=== PATIENT | male | born 1965 | race Caucasian/White ===

== ENCOUNTER → 2020-04-28 11:15 | Outpatient (BNVA) | payer BC, SELFPAY | PROVIDERS: Family Provider Nurse Practitioner Family; PCP Nurse Practitioner Family; Visit Provider Nurse Practitioner Family | DX: M25.9 Joint disorder, unspecified (principal); E34.9 Endocrine disorder, unspecified; M25.50 Pain in unspecified joint | CPT/HCPCS: 84403; 85651; 86038; 86140; 86431 ==

== ENCOUNTER → 2020-12-05 10:26 | Outpatient (BNVA) | payer BC, SELFPAY | PROVIDERS: Family Provider Nurse Practitioner Family; PCP Nurse Practitioner Family; Visit Provider Registered Nurse | DX: G60.9 Hereditary and idiopathic neuropathy, unspecified (principal); R61 Generalized hyperhidrosis; I10 Essential (primary) hypertension; E03.9 Hypothyroidism, unspecified; F41.9 Anxiety disorder, unspecified | CPT/HCPCS: 80053; 84402; 84403; 84443; 85025 ==

== ENCOUNTER → 2021-05-01 08:04 | Outpatient (BNVA) | payer BC, SELFPAY | PROVIDERS: Family Provider Nurse Practitioner Family; PCP Registered Nurse; Visit Provider Registered Nurse | DX: N39.0 Urinary tract infection, site not specified (principal); N41.0 Acute prostatitis | CPT/HCPCS: 81000 ==

== ENCOUNTER → 2021-12-17 08:53 | Outpatient (BNVA) | payer BC, SELFPAY | PROVIDERS: Family Provider Nurse Practitioner Family; PCP Registered Nurse; Visit Provider Registered Nurse | DX: G60.9 Hereditary and idiopathic neuropathy, unspecified (principal); Z12.5 Encounter for screening for malignant neoplasm of prostate; I10 Essential (primary) hypertension; E55.9 Vitamin D deficiency, unspecified; E29.1 Testicular hypofunction; Z12.11 Encounter for screening for malignant neoplasm of colon; Z00.00 Encounter for general adult medical examination without abnormal findings | CPT/HCPCS: 80053; 80061; 82306; 84402; 84403; 85025; G0103 ==

== ENCOUNTER 2022-02-06 06:14 | Day surgery (SDC) | payer BC, SELFPAY ==
[2022-02-01 11:48] VITALS: BMI 27.2
[2022-02-06 06:30] VITALS: BP 150/89; PULSE 72; RESP 20; TEMP 36.1; O2SAT 98
[2022-02-06] MEDS: sodium chloride 0.9% 1,000 ML 30 ML IV (06:37)
--- NOTE | 2022-02-06 07:47 | W.PM.OPSFHP ---
Same Day Surgery H&P Indication for Procedure/HPI DATE OF PROCEDURE: February 06, 2022 CHIEF COMPLAINT/INDICATIONFOR SURGICAL PROCEDURE: colonoscopy PREOP DIAGNOSIS: diagnostic PLANNED PROCEDURE: Operation Date: 02/06/22 08:00 Proposed Procedures p Colonoscopy 97023/z12.11(Not Applicable) - Juan Francisco Brown MD Medications/Allergies* Home Medications Medication Instructions Recorded Confirmed Type Vitamin D3 1 cap PO DAILY 02/06/22 02/06/22 History Allergies/Adverse Reactions Allergy/AdvReac Type Severity Reaction Status Date / Time Penicillins Allergy swelling Verified 12/17/21 08:17 tetanus toxoid, adsorbed Allergy Unknown Verified 12/17/21 08:17 Current Medications: Generic Name Dose Route Start Last Admin Trade Name Freq PRN Reason Stop Dose Admin Sodium Chloride 1,000 mls @ 30 mls/hr 02/06/22 06:30 02/06/22 06:37 Sodium Chloride 0.9% IV 02/07/22 06:29 30 mls/hr .Q24H ANDREI Administration Pertinent History/Comorbid Conditions* Medical History (Updated 12/17/21 @ 11:42 by CLARITZA oRbert) Diverticulitis Hypogonadism in male Social History Smoking and tobacco status: never smoked Alcohol intake: never Adopted: No Caregiver/support person: No Lives independently: No Household members: spouse Current occupational status: employed Sexually active: Yes Current gender identity: Male Pertinent Exam Findings alert, oriented x 3 and regular rate & rhythm Recommendations Surgery/Procedure today Coding Level of Care Code 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
--- NOTE | 2022-02-06 07:58 | ANES.PREANE2 ---
Pre-Anesthetic Assessment Height/Weight: Height 1.83 m Weight 91.172 kg Temp Pulse Resp BP Pulse Ox 97 F L 72 20 H 150/89 98 02/06/22 06:30 02/06/22 06:30 02/06/22 06:30 02/06/22 06:30 02/06/22 06:30 Preop Diagnosis: diagnostic Operation Date: 02/06/22 08:00 Proposed Procedures p Colonoscopy 11219/z12.11(Not Applicable) - Juan Francisco Brown MD Was Beta Zac taken within 24 hours: N/A Was Clonidine taken within 24 hours: N/A Last intake: Intake Last Liquid Date 02/05/22 Last Liquid Time 20:00 Last Solid Date 02/04/22 Last Solid Time 18:00 Social No alcohol and No tobacco Exam alert, oriented x 3, clear to auscultation bilaterally and regular rate & rhythm Airway Submandibular: within normal limits Cervical ROM: within normal limits Mallampati: Class II Dentition: full History/ROS No significant history except as noted and No significant complaints Pulmonary None reported CV/HEM None reported None reported Hepatic None reported GI None reported Metabolic None reported Musc/skel None reported Neuropsych None reported Anesthetic Plan ASA status: 2 Anesthesia: MAC Risk of > 500 ml blood loss (7ml/kg in children): No Medications/Allergies Home Medications Medication Instructions Recorded Confirmed Last Taken Type celecoxib 100 mg capsule See Rx Instructions .ROUTE 12/17/21 02/01/22 02/05/22 Rx .COMPLEX #180 cap pregabalin 75 mg capsule (Lyrica) 75 mg PO BID 30 Days #60 cap 12/17/21 02/01/22 02/05/22 Rx fluoxetine 20 mg capsule See Rx Instructions .ROUTE 01/29/22 02/01/22 02/05/22 Rx .COMPLEX #90 cap Vitamin D3 1 cap PO DAILY 02/06/22 02/06/22 02/05/22 History Allergies Allergy/AdvReac Type Severity Reaction Status Date / Time Penicillins Allergy swelling Verified 12/17/21 08:17 tetanus toxoid, adsorbed Allergy Unknown Verified 12/17/21 08:17 Current Medications Generic Name Dose Route Start Last Admin Trade Name Freq PRN Reason Stop Dose Admin Sodium Chloride 1,000 mls @ 30 mls/hr 02/06/22 06:30 02/06/22 06:37 Sodium Chloride 0.9% IV 02/07/22 06:29 30 mls/hr .Q24H ANDREI Administration PFSH Anesthesia Medical History Diverticulitis Hypogonadism in male Social History Smoking and tobacco status: never smoked Alcohol intake: never Adopted: No Caregiver/support person: No Lives independently: No Household members: spouse Current occupational status: employed Sexually active: Yes Current gender identity: Male Data Anesthesia Cardiac Studies: No Data to Display
[2022-02-06 08:32] VITALS: BP 113/84; PULSE 71; RESP 18; TEMP 36.2; O2SAT 96
[2022-02-06 08:47] VITALS: BP 120/95; PULSE 63; RESP 18; O2SAT 98
--- NOTE | 2022-02-06 17:14 | ANE.PACU2 ---
Inpatient post-anesthesia follow up: Airway intact: Yes Vital signs: Temperature 97.1 F Pulse Rate 63 Respiratory Rate 18 Blood Pressure 120/95 Pulse Oximetry 98 Oxygen Delivery Me thod Room Air Oxygen Flow Rate Fraction of Inspir ed Oxygen Hydration adequate: Yes Nausea and vomiting: No Pain level: 1 Mental status: Baseline
== END 2022-02-06 09:00 | disposition home or self-care (01) ==
PROVIDERS: Family Provider Nurse Practitioner Family; PCP Registered Nurse; Visit Provider Surgery
PROC: 0DJD8ZZ Inspection of Lower Intestinal Tract, Via Natural or Artificial Opening Endoscopic (ICD-10-PCS; CPT 45378; principal; 2022-02-06 08:00)
DX: Z12.11 Encounter for screening for malignant neoplasm of colon (principal); K57.30 Diverticulosis of large intestine without perforation or abscess without bleeding; K64.8 Other hemorrhoids
CPT/HCPCS: 45378; J2704; J7030

== ENCOUNTER → 2022-09-09 08:55 | Outpatient (BNVA) | payer OTHER, SELFPAY | PROVIDERS: Family Provider Nurse Practitioner Family; PCP Registered Nurse; Visit Provider Registered Nurse | DX: I10 Essential (primary) hypertension (principal); G60.9 Hereditary and idiopathic neuropathy, unspecified; K57.92 Diverticulitis of intestine, part unspecified, without perforation or abscess without bleeding; F41.9 Anxiety disorder, unspecified; R03.0 Elevated blood-pressure reading, without diagnosis of hypertension; E55.9 Vitamin D deficiency, unspecified | CPT/HCPCS: 80053; 80061; 82306; 85025 ==

== ENCOUNTER → 2023-01-13 09:33 | Outpatient (BNVA) | payer OTHER, SELFPAY | PROVIDERS: Family Provider Nurse Practitioner Family; PCP Registered Nurse; Visit Provider Registered Nurse | DX: I10 Essential (primary) hypertension (principal); E29.1 Testicular hypofunction; E55.9 Vitamin D deficiency, unspecified; E78.5 Hyperlipidemia, unspecified; R53.83 Other fatigue | CPT/HCPCS: 80053; 80061; 82306; 84402; 84403; 85025 ==

== ENCOUNTER → 2023-10-30 11:51 | Outpatient (BNVA) | payer OTHER, SELFPAY | PROVIDERS: Family Provider Nurse Practitioner Family; PCP Registered Nurse; Visit Provider Registered Nurse | DX: R61 Generalized hyperhidrosis (principal); Z79.899 Other long term (current) drug therapy; I10 Essential (primary) hypertension | CPT/HCPCS: 80053; 83880; 84443; 85025; 86140 ==

== ENCOUNTER → 2024-03-03 09:12 | Outpatient (BNVA) | payer OTHER, SELFPAY | PROVIDERS: Family Provider Nurse Practitioner Family; PCP Registered Nurse; Visit Provider Registered Nurse | DX: M77.8 Other enthesopathies, not elsewhere classified (principal); M25.50 Pain in unspecified joint | CPT/HCPCS: 85025; 86140; 86431 ==

== ENCOUNTER 2024-10-26 12:23 | Outpatient (CLI) | payer OTHER, SELFPAY ==
--- NOTE | 2024-10-26 12:28 | XR_ITS ---
WS: [id number] Exam: XR lumbar spine 2-3V* [id number] Date/Time of Exam: 10/26/2024 12:30 PM Reason For Exam: M54.50 - Low back pain, unspecified No acute fracture. Mild spondylosis. Disc spaces are preserved. Posterior elements are intact. Slight levoscoliosis that may be positional. XR/XR lumbar spine 2-3V* [id number] IMPRESSION: 1. Mild spondylosis otherwise negative lumbar spine.
== END 2024-10-26 12:24 | disposition home or self-care (01) ==
LOC: RAD 12:26
PROVIDERS: Family Provider Nurse Practitioner Family; PCP Registered Nurse; Visit Provider Registered Nurse
DX: M47.896 Other spondylosis, lumbar region (principal); M79.604 Pain in right leg; M79.605 Pain in left leg
CPT/HCPCS: 72100

== ENCOUNTER 2024-12-02 06:00 | Outpatient (RCR) | payer OTHER, SELFPAY | END 2024-12-27 23:59 | disposition home or self-care (01) | LOC: WPT 06:00 | PROVIDERS: Visit Provider Registered Nurse | DX: M54.42 Lumbago with sciatica, left side (principal) | CPT/HCPCS: 97110; 97112; 97161; 97530 ==

== ENCOUNTER 2024-12-29 07:29 | Outpatient (CLI) | payer OTHER, SELFPAY ==
--- NOTE | 2024-12-29 08:15 | MR_ITS ---
WS: [id number] MRI LUMBAR SPINE NONCONTRAST TECHNIQUE: Sagittal T1, T2 and STIR imaging. Axial T1 and T2 imaging. CLINICAL INFORMATION: M54.10 - Radiculopathy, site unspecified COMPARISON: MRI 2012 FINDINGS: Mild lumbar curve. No acute compression. No high-grade central canal stenosis. L1-L2: Mild annular bulging. Mild facet arthropathy. Spinal canal and foramina are patent. L2-L3: Mild facet arthropathy. Spinal canal and foramen are patent. L3-L4: Mild annular bulging. LEFT eccentric disc bulging with mild to moderate foraminal narrowing. Impingement on the exiting LEFT L3 nerve root. Mild facet arthropathy. L4-L5: Mild annular bulging. Mild facet arthropathy. Bilateral foraminal protrusions with mild LEFT greater than RIGHT foraminal narrowing. Moderate facet arthropathy. L5-S1: Mild facet arthropathy. Spinal canal and foramen are patent. Visualized pelvic bony structures: Normal. Paravertebral soft tissues: Normal. Partially visualized small LEFT renal cyst. MR/MR lumbar spine wo con* [id number] IMPRESSION: 1. LEFT eccentric disc bulging L3-4 with slight impingement on the exiting LEF T L3 nerve root. 2. Small bilateral foraminal protrusions L4-5 with mild bilateral foraminal na rrowing and contact of the exiting L4 nerve roots. 3. Mild to moderate facet arthropathy L3-L5. 4. No other acute findings.
== END 2024-12-29 07:30 | disposition home or self-care (01) ==
PROVIDERS: Visit Provider Nurse Practitioner Family
DX: M54.10 Radiculopathy, site unspecified (principal); M51.369 Other intervertebral disc degeneration, lumbar region without mention of lumbar back pain or lower extremity pain; M51.26 Other intervertebral disc displacement, lumbar region; M47.896 Other spondylosis, lumbar region; M43.8X6 Other specified deforming dorsopathies, lumbar region; M47.897 Other spondylosis, lumbosacral region; N28.1 Cyst of kidney, acquired
CPT/HCPCS: 72148

== ENCOUNTER → 2025-01-06 14:31 | Outpatient (BNVA) | payer OTHER, SELFPAY | PROVIDERS: Visit Provider Orthopaedic Surgery | DX: M48.061 Spinal stenosis, lumbar region without neurogenic claudication (principal) | CPT/HCPCS: 72110 ==

== ENCOUNTER → 2025-03-03 11:32 | Outpatient (BNVA) | payer OTHER, SELFPAY | PROVIDERS: PCP Registered Nurse; Visit Provider Orthopaedic Surgery | DX: Z01.818 Encounter for other preprocedural examination (principal); M48.061 Spinal stenosis, lumbar region without neurogenic claudication | CPT/HCPCS: 36415; 80053; 81001; 85025 ==

== ENCOUNTER 2025-03-16 09:44 | Day surgery (SDC) | payer OTHER, SELFPAY ==
[2025-03-16] VITALS (11 sets, daily range): BP systolic 106–121; BP diastolic 72–78; PULSE 62–98; RESP 16–21; TEMP 36.2–36.7; O2SAT 94–100; BMI 27.3
[2025-03-16] MEDS: sodium chloride 0.9% 1,000 ML 30 ML IV (10:30)
--- NOTE | 2025-03-16 10:32 | ANES.PREANE2 ---
Pre-Anesthetic Assessment Height/Weight: Height 6 ft Weight 202 lb Temp Pulse Resp BP Pulse Ox O2 Del Method 97.9 F 62 17 116/76 98 Room Air 03/16/25 10:10 03/16/25 10:10 03/16/25 10:10 03/16/25 10:10 03/16/25 10:10 03/16/25 10:10 Preop Diagnosis: Lumbar stenosis neurogenic claudication Operation Date: 03/16/25 11:40 Proposed Procedures p Lumbar Spine Decompression(Not Applicable) - Fernando Ferreira, DO Was Beta Azc taken within 24 hours: N/A Was Clonidine taken within 24 hours: N/A Last intake: Intake Last Liquid Date 03/15/25 Last Liquid Time 21:00 Last Solid Date 03/15/25 Last Solid Time 20:30 Social No alcohol and No tobacco Exam alert, oriented x 3, clear to auscultation bilaterally and regular rate & rhythm Airway Submandibular: within normal limits Cervical ROM: within normal limits Mallampati: Class III Dentition: full Anesthetic Plan ASA status: 2 Anesthesia: General Other: No prior issues with anesthesia NPO since yesterday evening History of hypertension on lisinopril Labs reviewed and acceptable for procedure 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 stable 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, 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 Plan for GETA Medications/Allergies Home Medications ?Medication ?Instructions ?Recorded ?Confirmed ?Last Taken ?Type psyllium husk 0.4 gram capsule 0.4 g PO QPM 10/26/24 03/16/25 03/15/25 History (Daily Fiber) tizanidine 4 mg tablet 4 mg PO BID PRN muscle spasticity 02/09/25 03/16/25 03/08/25 Rx #60 tabs celecoxib 100 mg capsule 100 mg PO BID 03/15/25 03/15/25 03/09/25 History cholecalciferol (vitamin D3) 1,250 1,250 mcg PO .WEEKLY 03/15/25 03/15/25 03/11/25 History mcg (50,000 unit) capsule fluoxetine 20 mg capsule 20 mg PO QPM 03/15/25 03/16/25 03/15/25 History lisinopril 10 mg tablet (Zestril) 10 mg PO QPM 03/15/25 03/15/25 03/14/25 History pregabalin 75 mg capsule (Lyrica) 75 mg PO QPM 03/15/25 03/16/25 03/15/25 History rosuvastatin 10 mg tablet 10 mg PO QPM 03/15/25 03/16/25 03/15/25 History Allergies Allergy/AdvReac Type Severity Reaction Status Date / Time Penicillins Allergy swelling Verified 03/15/25 15:45 tetanus toxoid, adsorbed Allergy Unknown Verified 03/15/25 15:45 Current Medications Generic Name Dose Route Start Last Admin Trade Name Freq PRN Reason Stop Dose Admin Sodium Chloride 1,000 mls @ 30 mls/hr 03/16/25 10:00 03/16/25 10:30 Sodium Chloride 0.9% IV 03/17/25 09:59 30 mls/hr .Q24H ANDREI Administration PFSH Anesthesia Medical History Hypogonadism in male Diverticulitis Surgical History Status post colonoscopy (02/06/22) History of shoulder surgery History of appendectomy Social History Smoking and tobacco/nicotine status: never used tobacco/nicotine Alcohol intake: never Substance/Drug Use: never Adopted: No Caregiver/support person: No Lives independently: No Household members: spouse Current occupational status: employed Sexually active: Yes Do you think of yourself as: Straight/Heterosexual Current gender identity: Male
--- NOTE | 2025-03-16 10:46 | W.PM.OPSUD ---
Surgery/Procedure H&P Update DATE OF PROCEDURE: March 16, 2025 DATE H&P PERFORMED: 03/03/25 H&P UPDATE INFORMATION: I have reviewed H&P completed within last 30 days, I have examined patient prior to procedure and No changes to prior documentation PREOP DIAGNOSIS: Lumbar stenosis neurogenic claudication PLANNED PROCEDURE: Operation Date: 03/16/25 11:40 Proposed Procedures p Lumbar Spine Decompression(Not Applicable) - Fernando Ferreira DO
[2025-03-16] MEDS: clindamycin 600 MG/50 ML PREMIX IV (11:14)
[2025-03-16] MEDS: lidocaine-epi 1% 20 mL INJ INJECTION (11:42)
--- NOTE | 2025-03-16 12:34 | PM.OP ---
Operative Report Date of procedure: March 16, 2025 Pre-op diagnosis: Lumbar stenosis neurogenic claudication Post-op diagnosis: same Procedure done: L4/5 laminectomy with partial facetectomy Surgeon: Fernando Ferreira DO Estimated blood loss (mL): 5 Procedure: Right L4-5 laminectomy with partial facetectomy Patient is brought to the operative suite. After undergoing anesthesia they are placed in the prone position. All areas of impingement are well padded. Patient is then prepped and draped in the normal sterile fashion. A skin incision is made over the L4/5 level. This is confirmed under c-arm guidance. A series of dilators are passed and the tubular retractor is docked on the L4 lamina. A bovie is used to clear the soft tissue off the lamina and the L 4/5 facet joint. A high speed alejandro is then used to perform the laminectomy and take down the medial aspect of the L 4/5 facet joint. A kerrison rongeure was then used to take down the remaining lamina and smooth the edge of the laminectomy up to the point where the ligamentum flavum attaches. Attention was then brought to the medial aspect of the facet joint. The remaining medial aspect of the superior and inferior aspect of the facet joint were taken down with the kerrison from the pedicle of L4 to L 5. The facet joint had significant hypertrophy. Attention was then brought to the Ligamentum Flavum. The ligament was taken down from the lamina of L4 to L5 and out medially to the remaining facet joint. The ligament was thick. The dura was then exposed. The dura was in good repair. The L4 nerve was then traced with a curette out the L4/5 foramen and found to be adequately decompressed. The L5 nerve was traced with a curette around the L5 pedicle. The lateral recess was opened with a kerrison helping to further decompress the L5 nerve. Wound is then irrigated copiously with saline and surgiflo is used to stop any bleeding. The tubular retractor is removed and the wound is closed with vicryl and monocryl suture. Glue is then used to protect the wound. A sterile dressing is then placed. Patient was then placed in the supine position and transferred to the PACU in stable condition.
[2025-03-16] MEDS: albuterol 2.5 MG/0.5 ML NEB (12:49)
--- NOTE | 2025-03-16 13:38 | ANE.PACU2 ---
Inpatient post-anesthesia follow up: Airway intact: Yes Vital signs: Temperature 98.1 F Pulse Rate 95 Respiratory Rate 18 Blood Pressure 116/72 Pulse Oximetry 95 Oxygen Delivery Me thod Room Air Oxygen Flow Rate 10 Fraction of Inspir ed Oxygen Hydration adequate: Yes Nausea and vomiting: No Pain level: 2 Mental status: Baseline
--- NOTE | 2025-03-16 14:51 | XR_ITS ---
WS: [id number] Lumbar spine, C-arm fluoroscopy views, 03/16/2025 Clinical Data: or pic, decompression Comparison: Lumbar spine, 01/06/2025 Findings: Dr. Ferreira performed a lumbar decompression. XR/XR lumbar spine 1V [id number] Impression: Lumbar decompression.
== END 2025-03-16 13:38 | disposition home or self-care (01) ==
PROVIDERS: PCP Registered Nurse; Visit Provider Orthopaedic Surgery
PROC: (CPT 63005; principal; 2025-03-16 11:20)
DX: M48.062 Spinal stenosis, lumbar region with neurogenic claudication (principal); I10 Essential (primary) hypertension
CPT/HCPCS: 63047; 72020; 76000; A7003; J1100; J1171; J1885; J2250; J2405; J2704; J3010; J3490; J3535; J7030; J7611; J9999

== ENCOUNTER 2025-03-21 10:41 | Emergency (ER) | payer OTHER, SELFPAY ==
[2025-03-21 10:47] VITALS: BP 117/70; PULSE 87; RESP 18; TEMP 37.6; O2SAT 98; BMI 28.1
[2025-03-21 11:45] LABS: Basophils # 0.1 10^3/uL (0.0-0.1); Basophils % 0.7 %; Eosinophils # 0.1 10^3/uL (0.0-0.8); Eosinophils % 1.5 %; Hematocrit 39.4 % (37-53); Lymphocytes # 1.2 10^3/uL (0.8-4.8); Lymphocytes % 14.8 %; Mean Corpuscular Hemoglobin 31.6 pg (27-33); Mean Corpuscular Volume 92.9 fl (82-101); Mean Platelet Volume 10.2 fL (7.4-10.4); Monocytes # 0.9 10^3/uL (0.2-0.9); Neutrophils # 5.81 10^3/uL (1.8-7.7); Nucleated Red Blood Cells % 0 %; Platelet Count 366 10^3/cmm (157-399); Red Blood Count 4.24 10^6/uL (3.85-5.65); Red Cell Distribution Width 11.4 % (12.1-15.1); White Blood Count 8.18 10^3/uL (3.29-11.43)
[2025-03-21 11:47] LABS: Erythrocyte Sedimentation Rate 13 mm/hr (0-10)
[2025-03-21 11:56] VITALS: BP 123/70; PULSE 87; RESP 16; O2SAT 93
[2025-03-21 11:59] VITALS: TEMP 37.3
--- NOTE | 2025-03-21 11:59 | XR_ITS ---
WS: [id number] Exam: XR chest 1V portable [id number] Date/Time of Exam: 03/21/2025 12:05 PM Reason For Exam: fever No priors. The lungs are fully inflated and clear. Normal cardiomediastinal silhouette for technique. No pleural effusion. Normal bony structures. XR/XR chest 1V portable [id number] IMPRESSION: 1. No acute cardiopulmonary finding.
--- NOTE | 2025-03-21 11:59 | CT_ITS ---
WS: [id number] CT lumbar myelogram with contrast HISTORY: back pain TECHNIQUE: Contiguous 2.5 mm axial imaging performed from T12 through the mid sacral level. Bone and soft tissue windows reviewed. Sagittal and coronal reformats are submitted and reviewed. DLP: 1416.[address] scans at [facility] use at least one of these dose optimization techniques: automated exposure control; mA and/or kV adjustment per patient size (includes targeted exams where dose is matched to clinical indication); or iterative reconstruction. COMPARISON: None available. Contrast: Omnipaque 350, 100 cc. Normal lumbar alignment. No fractures. No bone destruction. L4-5: Large LEFT laminectomy defect. At the laminectomy defect site there is a fluid collection measuring 2.9 x 3.0 cm. Fluid fluid collection contains a small amount of air. The collection extends into the LEFT epidural space with mild contact on the posterior thecal sac. Mild compression of the thecal sac. RIGHT broad-based foraminal disc protrusion and osteophytosis. Mild bilateral foraminal stenosis. Additional subcutaneous fluid measures 13.8 cm in length centered over the lumbar spine with a few foci of air. No wall enhancement. Sigmoid diverticulosis. No evidence for acute diverticulitis. Mild perinephric stranding. Partially visualized cyst lower pole LEFT kidney. No renal obstruction. Mild atherosclerosis aorta. CT/CT lumbar spine w con [id number] IMPRESSION: 1. Status post recent LEFT hemilaminectomy defect at L4-5. 2. In the hemilaminectomy defect is a fluid collection with a few foci of air measuring 2.9 x 3.0 cm. Fluid extends into the LEFT epidural space with mild en croachment and narrowing of the thecal sac. Due to the recent surgery this may be appropriate for postoperative seroma. No wall enhancement. 3. Development of mild central stenosis at the L4-5 level due to adjacent post operative fluid and postsurgical changes. Consider follow-up with orthopedic flores rgeon. MRI lumbar spine with and without contrast may be of benefit.
--- NOTE | 2025-03-21 11:59 | CT_ITS ---
WS: [id number] CT THORACIC spine with contrast. HISTORY: back pain TECHNIQUE: Contiguous 2.0 mm axial images are reviewed to thoracic spine. Images are reformatted in sagittal and coronal planes. All CT scans at [facility] use at least one of these dose optimization techniques: automated exposure control; mA and/or kV adjustment per patient size (includes targeted exams where dose is matched to clinical indication); or iterative reconstruction. DLP: 1416.85 mGy.cm COMPARISON: None available. Normal posterior thoracic alignment. No fractures are identified. Small vertebral body osteophytes. Largest osteophyte RIGHT lateral at T9-10. Unfused ossification center spinous process of T1. No acute fractures. No enhancing masses are identified. No cord compression identified. Biapical pleural thickening and scarring. Dependent atelectasis at the lung bases. Very small LEFT pleural effusion. Small mediastinal and hilar lymph nodes. These may be reactive as the number is increased. Small hiatal hernia. No adrenal mass. CT/CT thoracic spine w con [id number] IMPRESSION: 1. No acute thoracic spine fracture. 2. No enhancing mass or bone destruction.
[2025-03-21 12:04] LABS: Alanine Aminotransferase 43 U/L (0-41); Albumin Level 3.9 g/dL (3.5-5.2); Alkaline Phosphatase 97 U/L (40-130); Anion Gap 19.5 (5-19); Aspartate Amino Transferase 33 U/L (0-40); Blood Urea Nitrogen 12 mg/dL (6-20); C Reactive Protein 75.5 mg/L (0.0-4.9); Calcium 9.3 mg/dL (8.5-10.5); Carbon Dioxide 22 mmol/L (22-29); Chloride 101 mmol/L (98-107); Creatinine Clr Calc Pharmacy 103.5508; Globulin 3.7 g/dL (1.3-4.6); Glomerular Filtration Rate 86.7 mL/min (90-130); Glucose 97 mg/dL (65-115); Osmolality Calculated 286 mOsm/kg (285-295); Potassium 4.5 mmol/L (3.5-5.1); Sodium 138 mmol/L (136-145); Total Bilirubin 0.7 mg/dL (0.15-1.2); Total Protein 7.6 g/dL (6.6-8.7)
--- NOTE | 2025-03-21 12:05 | W.ED.FEVER ---
HPI - Fever General: Chief Complaint: Fever Stated Complaint: post op back surgery problems Time Seen by Provider: 03/21/25 11:58 Source: patient Mode of arrival: ambulatory Limitations: no limitations History of Present Illness: 60-year-old male states he had lumbar surgery last Friday states that since then he has been having severe back pain states pain is in his lower back goes down his hips. States he is also been having fevers as well. States had fever up to 102. He states he has had a hard time walking due to the pain denies any abdominal pain denies any chest pain. Associated symptoms: Deny abdominal pain, chills, chest pain, diarrhea, dysuria, headache(s), nausea or vomiting Related Data Home Medications ?Medication ?Instructions ?Recorded ?Confirmed psyllium husk 0.4 gram capsule 0.4 g PO QPM 10/26/24 03/16/25 (Daily Fiber) celecoxib 100 mg capsule 100 mg PO BID 03/15/25 03/15/25 cholecalciferol (vitamin D3) 1,250 1,250 mcg PO .WEEKLY 03/15/25 03/15/25 mcg (50,000 unit) capsule fluoxetine 20 mg capsule 20 mg PO QPM 03/15/25 03/16/25 pregabalin 75 mg capsule (Lyrica) 75 mg PO QPM 03/15/25 03/16/25 rosuvastatin 10 mg tablet 10 mg PO QPM 03/15/25 03/16/25 Previous Rx's ?Medication ?Instructions ?Recorded tizanidine 4 mg tablet 4 mg PO BID PRN muscle spasticity 02/09/25 #60 tabs hydrocodone 5 mg-acetaminophen 325 1 - 2 tab PO .Q4-6H #40 tabs 03/16/25 mg tablet hydrocodone 5 mg-acetaminophen 325 1 - 2 tab PO .Q4-6H #40 tabs 03/16/25 mg tablet hydrocodone 5 mg-acetaminophen 325 1 - 2 tab PO .Q4-6H #40 tabs 03/16/25 mg tablet hydrocodone 5 mg-acetaminophen 325 1 - 2 tab PO .Q4-6H #40 tabs 03/16/25 mg tablet lisinopril 10 mg tablet (Zestril) 10 mg PO QPM #90 tabs 03/18/25 oxycodone-acetaminophen 7.5 mg-325 1 tab PO Q8H PRN pain #14 tabs 03/21/25 mg tablet (Percocet) sulfamethoxazole 800 1 tab PO BID 10 days #20 tabs 03/21/25 mg-trimethoprim 160 mg tablet (Bactrim DS) Allergies Allergy/AdvReac Type Severity Reaction Status Date / Time Penicillins Allergy swelling Verified 03/21/25 10:51 tetanus toxoid, adsorbed Allergy Unknown Verified 03/21/25 10:51 Review of Systems Const: Reports: fever(s); Denies: chills, body aches or change in appetite ENMT: Denies: throat pain or dental pain Card: Denies: chest pain Resp: Denies: dyspnea GI: Denies: abdominal pain, nausea, vomiting or diarrhea : Denies: dysuria Musc: Reports: back pain; Denies: neck pain Skin/Breast: Denies: rash Neuro: Denies: headache(s) PFSH ED PFSH: Medical History Hypogonadism in male Diverticulitis Surgical History Status post colonoscopy (02/06/22) History of shoulder surgery History of appendectomy Social History Smoking and tobacco/nicotine status: never used tobacco/nicotine Alcohol intake: never Substance/Drug Use: never Adopted: No Caregiver/support person: No Lives independently: No Household members: spouse Current occupational status: employed Sexually active: Yes Do you think of yourself as: Straight/Heterosexual Current gender identity: Male Physical Exam Const: COMMON NORMALS: no acute distress, patient oriented x3 and healthy appearing HENMT: COMMON NORMALS: normocephalic and atraumatic HEAD & SCALP: normocephalic and atraumatic Eye: COMMON NORMALS: conjunctivae normal CONJUNCTIVA: Yes conjunctivae normal Neck/C-Spine: COMMON NORMALS: full ROM and supple Chest: COMMONS NORMALS: normal inspection of the chest Resp: COMMON NORMALS: normal respiratory effort, No retractions, No use of accessory muscles and clear to auscultation bilaterally AUSCULTATION: clear to auscultation bilaterally Cardio: COMMON NORMALS: regular rate, regular rhythm and No murmurs present (Cardio) RATE: regular rate RHYTHM: regular rhythm GI: COMMON NORMALS: Normal to inspection, nondistended, normoactive bowel sounds present, Soft to palpation, non-tender and no masses PALPATION: Yes Soft to palpation Back/Pelvis: OTHER: Incisions clean dry and intact Extremity: COMMON NORMALS: normal to inspection and full ROM Neuro: COMMON NORMALS: patient oriented x3, moves all extremities and no focal motor deficits Psych: COMMON NORMALS: mental status grossly normal, Normal thought process present and cooperative THOUGHT PROCESS: Normal thought process present Skin: COMMON NORMALS: no rashes or lesions noted and no wounds GENERAL SKIN EXAM: no rashes or lesions noted Course Vital Signs: Vital signs: Vital Signs Temperature 99.2 F 03/21/25 11:59 Pulse Rate 87 03/21/25 11:56 Respiratory Rate 16 03/21/25 11:56 Blood Pressure 123/70 03/21/25 12:42 Pulse Oximetry 94 03/21/25 12:42 Oxygen Delivery Me thod Room Air 03/21/25 10:47 MDM - Fever Medical Decision Making Patient presents with back pains likely postop pain he is feels much improved here after pain meds he is able to ambulate without difficulty he is afebrile here incisions clean and dry and intact I did speak to his surgeon Dr[facility] on . Return if worsening Medical Records I reviewed the patient's medical records. Lab Data I reviewed the patient's lab results. 03/21/25 11:37 03/21/25 11:37 Radiology Impressions Chest X-Ray 03/21/25 11:59 IMPRESSION: 1. No acute cardiopulmonary finding. Lumbar Spine CT 03/21/25 11:59 IMPRESSION: 1. Status post recent LEFT hemilaminectomy defect at L4-5. 2. In the hemilaminectomy defect is a fluid collection with a few foci of air measuring 2.9 x 3.0 cm. Fluid extends into the LEFT epidural space with mild encroachment and narrowing of the thecal sac. Due to the recent surgery this may be appropriate for postoperative seroma. No wall enhancement. 3. Development of mild central stenosis at the L4-5 level due to adjacent postoperative fluid and postsurgical changes. Consider follow-up with orthopedic surgeon. MRI lumbar spine with and without contrast may be of benefit. Thoracic Spine CT 03/21/25 11:59 IMPRESSION: 1. No acute thoracic spine fracture. 2. No enhancing mass or bone destruction. Laboratory Results WBC 8.18 10^3/uL (3.29-11.43) 03/21/25 11:37 RBC 4.24 10^6/uL (3.85-5.65) 03/21/25 11:37 Hgb 13.40 g/dL (11.27-16.99) 03/21/25 11:37 Hct 39.4 % (37-53) 03/21/25 11:37 MCV 92.9 fl (82-101) 03/21/25 11:37 MCH 31.6 pg (27-33) 03/21/25 11:37 MCHC 34.0 g/dL (30-55) 03/21/25 11:37 RDW 11.4 % (12.1-15.1) L 03/21/25 11:37 Plt Count 366 10^3/cmm (157-399) 03/21/25 11:37 MPV 10.2 fL (7.4-10.4) 03/21/25 11:37 Neut % (Auto) 71.0 % 03/21/25 11:37 Lymph % (Auto) 14.8 % 03/21/25 11:37 [place] % (Auto) 11.0 % 03/21/25 11:37 Eos % (Auto) 1.5 % 03/21/25 11:37 Baso % (Auto) 0.7 % 03/21/25 11:37 Neut # (Auto) 5.81 10^3/uL (1.8-7.7) 03/21/25 11:37 Lymph # (Auto) 1.2 10^3/uL (0.8-4.8) 03/21/25 11:37 [place] # (Auto) 0.9 10^3/uL (0.2-0.9) 03/21/25 11:37 Eos # (Auto) 0.1 10^3/uL (0.0-0.8) 03/21/25 11:37 Baso # (Auto) 0.1 10^3/uL (0.0-0.1) 03/21/25 11:37 Nucleated RBC % (auto) 0 % 03/21/25 11:37 Nucleated RBCs # 0.0 /100WBC 03/21/25 11:37 ESR 13 mm/hr (0-10) H 03/21/25 11:37 Sodium 138 mmol/L (136-145) 03/21/25 11:37 Potassium 4.5 mmol/L (3.5-5.1) 03/21/25 11:37 Chloride 101 mmol/L (98-107) 03/21/25 11:37 Carbon Dioxide 22 mmol/L (22-29) 03/21/25 11:37 Anion Gap 19.5 (5-19) H 03/21/25 11:37 BUN 12 mg/dL (6-20) 03/21/25 11:37 Creatinine 0.9 mg/dL (0.7-1.2) 03/21/25 11:37 GFR Calculation 86.7 mL/min (90-130) L 03/21/25 11:37 Glucose 97 mg/dL (65-115) 03/21/25 11:37 Calculated Osmolality 286 mOsm/kg (285-295) 03/21/25 11:37 Calcium 9.3 mg/dL (8.5-10.5) 03/21/25 11:37 Total Bilirubin 0.7 mg/dL (0.15-1.2) 03/21/25 11:37 AST 33 U/L (0-40) 03/21/25 11:37 ALT 43 U/L (0-41) H 03/21/25 11:37 Alkaline Phosphatase 97 U/L (40-130) 03/21/25 11:37 C-Reactive Protein 75.5 mg/L (0.0-4.9) H 03/21/25 11:37 Total Protein 7.6 g/dL (6.6-8.7) 03/21/25 11:37 Albumin 3.9 g/dL (3.5-5.2) 03/21/25 11:37 Globulin 3.7 g/dL (1.3-4.6) 03/21/25 11:37 Amorphous Sediment Not Reportable 03/21/25 13:08 All radiology interpretation(s) finalized by discharge Discharge Plan Discharge Patient Disposition: Home Clinical Impression: Post-operative pain Condition: Stable Prescriptions: New sulfamethoxazole-trimethoprim [Bactrim DS] 800-160 mg tablet 1 tab PO BID 10 Days Qty: 20 0RF oxycodone-acetaminophen [Percocet] 7.5-325 mg tablet 1 tab PO Q8H PRN (Reason: pain) Qty: 14 0RF No Action psyllium husk [Daily Fiber] 0.4 gram capsule 0.4 g PO QPM tizanidine 4 mg tablet 4 mg PO BID PRN (Reason: muscle spasticity) Qty: 60 0RF lisinopril [Zestril] 10 mg tablet 10 mg PO QPM Qty: 90 0RF celecoxib 100 mg capsule 100 mg PO BID Rx Instructions: Take 1 capsule by mouth twice daily fluoxetine 20 mg capsule 20 mg PO QPM Rx Instructions: Take 1 capsule by mouth once daily rosuvastatin 10 mg tablet 10 mg PO QPM Rx Instructions: Take 1 tablet by mouth once daily cholecalciferol (vitamin D3) 1,250 mcg (50,000 unit) capsule 1,250 mcg PO .WEEKLY Rx Instructions: Take 1 capsule by mouth once a week pregabalin [Lyrica] 75 mg capsule 75 mg PO QPM hydrocodone-acetaminophen 5-325 mg tablet 1 - 2 tab PO .Q4-6H Qty: 40 0RF hydrocodone-acetaminophen 5-325 mg tablet 1 - 2 tab PO .Q4-6H Qty: 40 0RF hydrocodone-acetaminophen 5-325 mg tablet 1 - 2 tab PO .Q4-6H Qty: 40 0RF hydrocodone-acetaminophen 5-325 mg tablet 1 - 2 tab PO .Q4-6H Qty: 40 0RF Discharge Orders: Discharge ED (Routine); Ordered 03/21/25 Ordered By: Denisa Ramirez Referrals: Fernando Ferreira DO [Physician, Orthopedics] - 4-7 days Le Levine FNP [Primary Care Provider, Family Practice] Discharge Diet: Advance as tolerated Discharge Activity: Resume usual activity Patient Instructions: Opioid Safety, Post Operative Pain Print Language: Indonesian Coding Level of Care Code ED 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
[2025-03-21] MEDS: iohexol 350 mg/mL 500 mL Btl (per mL) IV (12:21)
[2025-03-21] MEDS: ketorolac 30 mg/mL INJ 15 MG IVP (12:28)
[2025-03-21] MEDS: HYDROmorphone 0.5 MG/0.5 ML INJ 1 MG IVP (12:29)
[2025-03-21] MEDS: ondansetron 2 mg/ML SDV 2 mL 4 MG IVP (12:29)
[2025-03-21 12:42] VITALS: BP 123/70; O2SAT 94
[2025-03-21 13:24] LABS: Bilirubin Urine Negative (Negative); Blood Urine Negative (Negative); Glucose Urine UA Negative (Normal); Ketones Urine Negative (Negative); Leukocyte Esterase Urine Negative (Negative); Nitrate Urine Negative (Negative); Protein Urine Negative (Negative); Urine Appearance Clear (CLEAR); Urine Color Yellow (Yellow); pH Urine 8.5 (5-7)
[2025-03-21 13:29] LABS: Add Urine Microscopic? YES; Bacteria Urine None Seen /hpf; Hyaline Casts Urine 0-4 /lpf; RBC Urine 0-2 /hpf (0-2); Squamous Epithelial Cell Urine 0-5 /hpf (0-5); WBC Urine 0-5 /hpf (0-5)
[2025-03-21 13:33] LABS: Specific Gravity, Urine 1.035 (1.005-1.030)
[2025-03-21 13:47] VITALS: BP 123/70; PULSE 81; RESP 16; O2SAT 91
== END 2025-03-21 13:47 | disposition home or self-care (01) ==
PROVIDERS: Emergency Provider Emergency Medicine; PCP Registered Nurse
DX: G89.18 Other acute postprocedural pain (principal)
CPT/HCPCS: 36415; 71045; 72129; 72132; 80053; 81001; 85025; 85651; 86140; 87040; 96374; 96375; 99285; J1171; J1885; J2405